=== PATIENT | female | born 1995 | race Caucasian/White ===

== ENCOUNTER 2024-03-01 11:14 | Inpatient (IN) | payer OTHER ==
[~2024-03-01] VITALS: Ht 167.6 cm; Wt 95.5 kg
[2024-03-08] VITALS (71 sets, daily range): BP systolic 97–167; BP diastolic 58–103; PULSE 60–103; TEMP 97.4–98.6
[2024-03-08] MEDS ORDERED: LR & Oxytocin 500 ML IV SCH (06:30)
[2024-03-08] MEDS ORDERED: LR 1,000 ML IV SCH (06:30)
--- NOTE | 2024-03-08 06:30 | NUR ---
0630 40.0, G1L0 arrives on unit for scheduled IOL. Ambulatory to LDR3 with spouse. Oriented to room and plan of care. Denies any LOF, VB, or contractions. Reports normal movement. Changes into clean gown. 0642EFM explained and placed. Tracing well. VS obtained. Assessment completed. Consent forms explained and signed. 0650IV to left FA. Routine labs obtained. LR infusing. 0705FHR with moderate variability, no accels. Repositioned wedge right. Juice given. 0715Accels present. Dr. Suero on unit and reviews strips. RN to start pitocin per protocol. Plan of care reviewed with pt who verbalizes understanding. Resting with call light within reach.
[2024-03-08 07:15] LABS: BASO % 0.3 % (0.0-2.0); EOS # 0.1 K/mm3 (0.0-0.7); EOS % 0.6 % (0.0-4.0); GRAN # 7.7 K/mm3 (1.4-6.5); GRAN % 66.7 % (42.2-75.2); HEMOGLOBIN 12.4 g/dl (12.5-16.0); LYMPH # 2.8 K/mm3 (1.2-3.4); LYMPH % 24.2 % (20.0-51.0); MEAN CELL VOLUME 87 fl (80.0-100.0); MEAN CORPUSCULAR HEMOGLOBIN 31 pg (27-31); MEAN CORPUSCULAR HGB CONC 35 g/dl (33.0-37.0); MEAN PLATELET VOLUME 14.2 fl (7.4-10.4); MONO # 0.8 K/mm3 (0.1-0.6); PLATELET COUNT 147 K/mm3 (130-400); RED BLOOD COUNT 4.07 M/mm3 (4.10-5.30); REDCELL DISTRIBUTION WIDTH-CV 15.6 % (11.5-14.5)
[2024-03-08 07:17] LABS: HEMATOCRIT 35.2 % (37.0-47.0)
[2024-03-08] MEDS ORDERED: PROTONIX20 MG PO (07:26)
[2024-03-08] MEDS ORDERED: PRENATAL MVI (07:26)
--- NOTE | 2024-03-08 10:25 | NUR ---
1025Patient reqesting epidural. Tiera Randall CRNA on unit and notified. LR bolus infusing. 1030Tiera Randall CRMa at bedside for epidural placement. Pt to edge of bed. 1038Epidural placed and single shot at this time by Tiera Randall CRNA. See anesthesia record. 1046Patient wedge right. EFM adjusted. Plan of care and safety precautions reviewed. Rn remains at bedside.
[2024-03-08] MEDS ORDERED: diphenhydrAMINE 50 MG/ML 1 ML VIAL IV PRN (10:30)
[2024-03-08] MEDS ORDERED: ePHEDrine 50 MG/10 ML VIAL IV PRN (10:30)
[2024-03-08] MEDS ORDERED: Naloxone 0.4 MG/ML VIAL IV PRN (10:30)
[2024-03-08] MEDS ORDERED: Ondansetron 4 MG/2 ML VIAL IV PRN (10:30)
[2024-03-08] MEDS ORDERED: diphenhydrAMINE 25 MG CAP PO PRN (10:30)
[2024-03-08 10:36] LABS: ALBUMIN 2.7 g/dL (3.5-5.0); BILIRUBIN,TOTAL 0.4 mg/dL (0.2-1.2); CALCIUM 9.2 mg/dL (8.4-10.2); CREATININE, serum 0.86 mg/dL (0.57-1.11); POTASSIUM 4.1 mEq/L (3.5-4.5); TOTAL PROTEIN 5.9 g/dl (6.2-8.1)
[2024-03-08] MEDS ORDERED: ROPivacaine PF 0.2% 200 ML IV ONE (10:46)
--- NOTE | 2024-03-08 10:54 | NUR ---
1054FHR decel down to 80-90bmp. Patient left lateral. LR bolus infusing. 1055 Patient right lateral. SVE 4/75/-2. 1057Patient left lateral. Pitocin off. 1059FHR to baseline 120's. Rn remains at bedside. Attempt to call Dr. Suero x1 and this time. Call to voicemail. 1105Dr. Nimo updated on patient. See physician notification. 1107BP 97/64. Ephedrine 10mg given. See JAN. 1110BP 115/60. See VS flowsheet. RN remains at bedside. 1125 Catheter placed. UA collected. Patient Remains in left lateral position. Questions invited and answered. Resting with call light within reach.
[2024-03-08 11:37] LABS: COLLECTION METHOD CATHETER
[2024-03-08 11:51] LABS: URINE APPEARANCE CLEAR (CLEAR/HAZY); URINE BLOOD NEGATIVE (NEGATIVE); URINE COLOR YELLOW (YELLOW); URINE GLUCOSE NEGATIVE (NEGATIVE); URINE KETONE NEGATIVE (NEGATIVE); URINE NITRATE NEGATIVE (NEGATIVE); URINE PROTEIN(semi-quant) NEGATIVE (NEGATIVE); URINE UROBILINOGEN 0.2 E.U/dL (0.2-1.0)
--- NOTE | 2024-03-08 15:00 | NUR ---
1500Variable and late decels noted. Repositioned. LR bolus initiated.
--- NOTE | 2024-03-08 16:13 | NUR ---
1613RN at bedside to reposition patient. FHR decel to 80's. Patient high left lateral. 1616LR bolus infusing. SVE /-2. High right lateral. 1618Pitocin off. Repositioned high left lateral. 1620Dr. Goodpasture updated on pt. See physician notification. 1622FSE placed to ensure cont. monitoring to attempt hands knees for FHT. 1623Patient left tilt. FHR returns to baseline 120's. RN remains at bedside. 1625Dr. Goodpasture updated on pt. See physician notification. Patient updated on plan of care. Questions invited and answered. Resting with call light within reach.
[2024-03-08] MEDS ORDERED: Acetaminophen 500 MG TAB PO PRN (18:45)
--- NOTE | 2024-03-08 19:00 | NUR ---
1841- DR COLLINS AT BEDSIDE. SVE /2. PATIENT REPOSITIONED TO LEFT LATERAL WITH RIGH LEG IN STIRRUP. AUDIBLE DECELERATION NOTED. 1851- PATIENT REPOSITIONED IN HANDS AND KNEES 1853- PITOCIN TURNED OFF. OXYGEN MASK APPLIED TO MOTHER. 1900- SVE /[address] COLLINS. MOTHER REPOSITIONED IN LEFT LATERAL WITH PEANUT BALL.
--- NOTE | 2024-03-08 21:20 | NUR ---
225- DR. COLLINS AT BEDSIDE 2101- SVE 0. AUDIBLE DECELERATION NOTED. 2103- PATIENT REPOSITIONED TO WEDGE RIGHT LATERAL. 2107- PATIENT REPOSITIONED TO WEDG RIGHT LATERAL WITH PEANUT BALL 2109- PITOCIN TURNED OFF. SCALP ELECTRODE REMOVED 2112- E BY DR. COLLINS /0 2114- PATIENT REPOSITIONED TO LEFT LATERAL PEANUT BALL. HEART TONES RETURNING TO BASELINE.
[2024-03-08] MEDS ORDERED: Phenylephrine 10 MG/ML VIAL ONE (23:21)
[2024-03-08] MEDS ORDERED: NS 20 ML IV ONE (23:23)
[2024-03-08] MEDS ORDERED: Oxytocin 10 UNITS/ML VIAL ONE (23:23)
[2024-03-08] MEDS ORDERED: Ondansetron 4 MG/2 ML VIAL ONE (23:23)
[2024-03-08] MEDS ORDERED: EPINEPHrine 1 MG/1 ML Ampule ONE (23:28)
[2024-03-09] VITALS (25 sets, daily range): BP systolic 92–128; BP diastolic 46–76; PULSE 69–122; TEMP 97.6–99.1
--- NOTE | 2024-03-09 | NUR ---
2144- SVE COMPLETE/0 2149- CRESPO CATHETER REMOVED. PERICARE PROVIDED 2155- PATIENT EDUCATED ON PROPER PUSHING EFFORTS. PATIENT BEGINS COACHED PUSHING 2249- DR. COLLINS AT BEDSIDE TO ASSIST WITH PUSHING EFFORTS. 2307- DECISION FOR DUE TO ARREST OF DESCENT. PITOCIN TURNED OFF 2317- CRESPO CATHETER PLACED.
[2024-03-09] MEDS ORDERED: LR 2,000 ML IV ONE (00:05)
[2024-03-09] MEDS ORDERED: fentaNYL 50 MCG/ML 5 ML VIAL ONE (00:07)
[2024-03-09] MEDS ORDERED: Meperidine 50 MG/ML 1 ML VIAL IV PRN (00:15)
[2024-03-09] MEDS ORDERED: fentaNYL 50 MCG/ML 2 ML VIAL ONE ×2 (00:23→01:41)
[2024-03-09] MEDS ORDERED: LR 1,000 ML IV ONE ×2 (00:42→01:11)
[2024-03-09] MEDS ORDERED: Midazolam 2 MG/2 ML VIAL ONE (00:55)
[2024-03-09] MEDS ORDERED: Oxytocin 10 UNITS/ML VIAL ONE (01:33)
[2024-03-09] MEDS ORDERED: Meperidine 50 MG/ML 1 ML VIAL ONE (01:41)
[2024-03-09] MEDS ORDERED: Magnes Hydrox (MOM) 80 MG/ML 30 ML CUP PO PRN (05:15)
[2024-03-09] MEDS ORDERED: Loratadine 10 MG TAB PO PRN (05:15)
[2024-03-09] MEDS ORDERED: Ondansetron 4 MG/2 ML VIAL IV PRN (05:15)
[2024-03-09] MEDS ORDERED: oxyCODONE/Acetaminophen 5-325 MG TAB PO PRN (05:15)
[2024-03-09] MEDS ORDERED: LR 1,000 ML IV PRN (05:15)
[2024-03-09] MEDS ORDERED: Morphine 4 MG/ML VIAL IV PRN (05:15)
[2024-03-09] MEDS ORDERED: Measles/Mumps/Rubella Virus Vaccine Live w Diluent 0.5 ML VIAL SQ SCH (05:15)
[2024-03-09] MEDS ORDERED: Naloxone 0.4 MG/ML VIAL IV PRN (05:15)
[2024-03-09 05:36] LABS: HEMATOCRIT 21.3 % (37.0-47.0); HEMOGLOBIN 7.5 g/dl (12.5-16.0)
[2024-03-09] MEDS ORDERED: Sennosides/Docusate 8.6-50 MG TAB PO SCH (08:00)
[2024-03-09] MEDS ORDERED: Ibuprofen 800 MG TAB PO SCH (11:00)
--- NOTE | 2024-03-09 13:00 | NUR ---
Dr Suero at bedside talking with Pt. Descussed getting pt up to her feet to see if pt had dizziness while standing. Dr Suero want to be notifed before 1800 so she could decide if pt needed a unit of blood. Also discussed pt's higher pain level. Dr Suero ordered her Percocet to be increased from 5mg to 7.5mg.
[2024-03-09] MEDS ORDERED: oxyCODONE/Acetaminophen 7.5-325 MG TAB PO PRN (13:45)
[2024-03-09] MEDS ORDERED: FERRO-TIME325 MG PO (13:48)
[2024-03-09] MEDS ORDERED: PERCOCET 325 MG1 TA3 PO (13:48)
[2024-03-09] MEDS ORDERED: IBU800 M1 PO (13:48)
--- NOTE | 2024-03-09 15:45 | NUR ---
1545- [place] nurse had asked for assistance scooting pt up in bed for education. During this time it was noted that Pt had multiple blood clots. Fundle rub resulted in no additional clots or bleeding. Pt's bleeding had been scant to this point. Pads and clots under pt removed and weighed. 346 grams total. 1600- Dr Gume gerber was called and updated about the bleeding. She ordered 1 dose of IM methergine. Dr Suero also wanted to know how the patient tolerated standing and wanted to be updated before 1800 to decide if pt would need a unit of blood. 1610- IM methergine given to pt. 1620- Pt was having difficulty lifting feet off the bed. Pt was able to feel feet and move knees. Charge nurse Stella came in to assist in standing up the pt. Pt was assisted up and sat at the side of the bed. When asked how she felt she stated that she was unsure how she felt "just weird". Pt was able to stand with double assist. After pt was laying back down pt was asked again how she was feeling and how standing and sitting felt. Pt reiterated that she was unsure of what the feeling was "just weird". No other clots were noted during standing. bleeding scant. Pulse 110-120 at rest. 1640- Dr Suero called and updated. Dr Suero ordered 1 unit of blood for Pt and a CBC to be done in the morning.
[2024-03-09] MEDS ORDERED: Methylergonovine 0.2 MG/ML 1 ML AMPUL IM ONE (16:15)
[2024-03-09] MEDS ORDERED: NS 500 ML IV SCH (17:00)
--- NOTE | 2024-03-09 20:30 | NUR ---
No S/S of transfusion reaction. transfusion rate increased to 150cc/hr.
[2024-03-09] MEDS ORDERED: traZODone 50 MG TAB PO PRN (21:00)
[2024-03-10 03:15] VITALS: BP 110/58; PULSE 116; TEMP 97.8
[2024-03-10 08:00] VITALS: BP 109/78; PULSE 128; TEMP 98
[2024-03-10 09:41] LABS: MEAN CELL VOLUME 87 fl (80.0-100.0); MEAN CORPUSCULAR HGB CONC 36 g/dl (33.0-37.0); MEAN PLATELET VOLUME 13.6 fl (7.4-10.4); PLATELET COUNT 124 K/mm3 (130-400); RED BLOOD COUNT 2.61 M/mm3 (4.10-5.30); REDCELL DISTRIBUTION WIDTH-CV 15.4 % (11.5-14.5)
--- NOTE | 2024-03-10 09:41 | NUR ---
Initial visit attempt; Patient resting, Prevention Coordinator left card offering congratulations and God's blessings for the of her son and information regarding the availablilty of Spiritual [facility] at our hospital.
[2024-03-10 09:43] LABS: HEMATOCRIT 22.7 % (37.0-47.0); HEMOGLOBIN 8.2 g/dl (12.5-16.0); MEAN CORPUSCULAR HEMOGLOBIN 31 pg (27-31)
[2024-03-10 16:04] VITALS: BP 122/65; PULSE 131; TEMP 98
[2024-03-10 18:10] VITALS: BP 113/68; PULSE 120; TEMP 98.4
[2024-03-11 08:00] VITALS: BP 110/68; PULSE 114; TEMP 98
[2024-03-11 16:45] VITALS: BP 123/84; PULSE 100
[2024-03-11 18:27] VITALS: BP 129/85; PULSE 113; TEMP 98.8
[2024-03-11] MEDS ORDERED: Ibuprofen 800 MG TAB PO SCH (22:00)
[2024-03-12 08:00] VITALS: BP 121/84; PULSE 112; TEMP 98.1
== END 2024-03-12 13:20 | disposition home or self-care (01) | DRG 787 ==
LOC: LDR 03-08 06:23 → OB 03-08 08:39
PROVIDERS: ADMIT Student in an Organized Health Care Education/Training Program
PROC: 10D00Z1 Extraction of Products of Conception, Low, Open Approach (ICD-10-PCS; principal; 2024-03-09)
PROC: 3E033VJ Introduction of Other Hormone into Peripheral Vein, Percutaneous Approach (ICD-10-PCS; 2024-03-09)
PROC: 10907ZC Drainage of Amniotic Fluid, Therapeutic from Products of Conception, Via Natural or Artificial Opening (ICD-10-PCS; 2024-03-09)
PROC: 30233N1 Transfusion of Nonautologous Red Blood Cells into Peripheral Vein, Percutaneous Approach (ICD-10-PCS; 2024-03-09)
DX: O48.0 Post-term pregnancy (principal); D62 Acute posthemorrhagic anemia; O33.0 Maternal care for disproportion due to deformity of maternal pelvic bones; O99.12 Other diseases of the blood and blood-forming organs and certain disorders involving the immune mechanism complicating childbirth; Z3A.40 40 weeks gestation of pregnancy; Z37.0 Single live birth; O99.62 Diseases of the digestive system complicating childbirth; K21.9 Gastro-esophageal reflux disease without esophagitis; O36.63X0 Maternal care for excessive fetal growth, third trimester, not applicable or unspecified; D69.59 Other secondary thrombocytopenia; O76 Abnormality in fetal heart rate and rhythm complicating labor and delivery; O99.892 Other specified diseases and conditions complicating childbirth; O99.214 Obesity complicating childbirth; O90.81 Anemia of the puerperium; K59.00 Constipation, unspecified; O69.81X0 Labor and delivery complicated by cord around neck, without compression, not applicable or unspecified; Q99.2 Fragile X chromosome; Z88.0 Allergy status to penicillin; Z91.041 Radiographic dye allergy status
CPT/HCPCS: J0171; J0665; J0690; J2175; J2210; J2250; J2270; J2371; J2405; J2590; J2795; J3010; J7120; P9016

== ENCOUNTER → 2024-03-27 | Outpatient (CLI) | payer OTHER ==
[~2024-03-27] MED LIST: CEFTIN 250250 MG/TAB PO; FERRO-TIME325 MG PO; IBU800 M1 PO; PERCOCET 325 MG1 TA3 PO; PRENATAL MVI; PROTONIX20 MG PO
--- NOTE | 2024-03-27 13:52 | NUR ---
Pt, Candy Paredes, presents for outpatient consult with 19 day old baby boy, Perez Paredes. She is also accompanied by her spouse, Tam Paredes. Pt states she is concered about because Perez eats frequently, q 1-1.5 hours at times, she is unsure of her milk supply as it has taken longer than expected for Perez to get above weight, and how much he is getting from the breast. Perez was born on [birth year] by emergency c/section and weighed 8# 6.4oz (4024 gms). Pt's delivery is also significant for PP hemorraghe, which caused a delay in Perez getting to establish milk supply. Perez's lowest known weight was 7#11oz while still in the hospital, at that time SNS commenced and the family continued to do this after hospital discharge. Perez was seen by Dr. Page on 03/20/24 and he weighted 8# 6.4oz. She advised at that time to discontinue the SNS. Currently, Perez is eating frequently in the daytime hours, where last week it was more in the night times, however it continues to inconsistent. Today Perez weighs 8# 14oz (4024 gms). He makes qs voids and stools. Since the SNS was discontinued, Perez is getting about 2-2oz bottles per day because he is not getting content. Pt pumps 2-3 times per 24 hours, collecting a little under an ounce per pumping. It is hard for her to pump more due to his frequent feeds. Pt is assisted/evaluted on latch; she states the latch is more comfortable. She is able to latch him better without assistance. Pt uses both football and cradle hold. After on each side Perez has a gain of 1.7oz (54 ml). He continues to root vigerously so we elect to offer SNS. Perez drinks 22ml formula via SNS and has an addtional gain of 8ml from breastmilk. His total intake per weights is 3.2oz (84 ml). Pt understands frequent feedings can help drive milk supply and is willing to let Perez nurse frequently but also needs a balance to get rest and breaks. She also understand because of the PP hemorraghe, she may struggle to get to 100% breastmilk. Pt provided information about herbal supplements she may try. POC: Continue Bf ad monik, supplement as indicated by Perez's behavior. Method of supplement is upto the family. Pump as able if pt gets a long enough rest between feedings. F/U: Perez has an appointment with Dr. Page tomorrow. With this LC prn. Questions invited and answered.
== END ==
LOC: LAC 08:51
DX: Z39.1 Encounter for care and examination of lactating mother (principal); Z71.89 Other specified counseling